=== PATIENT | male | born 1935 | race Caucasian/White ===

== ENCOUNTER 2016-12-22 04:36 | Observation (INO) | payer OTHER ==
[~2016-12-22] VITALS: Ht 167.6 cm; Wt 69.4 kg
[~2016-12-22 04:36] MED LIST: LEVOTHYROXINE75 MCG PO; LISINOPRIL20 MG PO; LISINOPRIL40 MG PO; LO-DOSE ASPIRIN81 M1 PO; LOPRESSOR25 MG PO; NORVASC10 MG PO; NORVASC5 MG PO; PANTOPRAZOLE SO40 MG PO; PRAVASTATIN SOD80 MG PO
[2016-12-22 05:34] LABS: CHLORIDE 108 mEq/L (99-109); HEMATOCRIT 47.5 % (38.0-50.0); MCH 32.4 PG (29.0-34.0); MCHC 35.8 G/DL (30.0-36.0); MCV 90.5 FL (86-99); MEAN PLAT.VOLUME 9.4 uM^3 (9.0-12.4); PLATELET COUNT 228 K/uL (156-360); RBC DIS.WIDTH-CV 13.2 % (11.8-14.6); RBC DIS.WIDTH-SD 43.2 % (39-53); RED BLOOD COUNT 5.25 M/uL (4.00-5.50); SODIUM 139 mEq/L (136-147); WHITE BLOOD COUNT 7.6 K/uL (4.1-10.2)
[2016-12-22 05:36] LABS: GLUCOSE 109 mg/dL (70-99)
[2016-12-22 05:37] LABS: ANION GAP 10 MEQ/L (2-14)
[2016-12-22 05:39] LABS: GFR ESTIMATE (CALCULATED) > 59 mL/min/
[2016-12-22 05:40] LABS: UREA NITROGEN (BUN) 13 mg/dL (9-23)
[2016-12-22 05:42] LABS: TROP-I INTERPRETATION NEGATIVE; TROPONIN-I < 0.01 ng/mL (0.0-0.30)
[2016-12-22] MEDS ORDERED: LEVO-T88 MCG PO (08:33)
[2016-12-22] MEDS ORDERED: NAMZARIC TITRA1 EACH PO (08:34)
[2016-12-22 09:26] LABS: HDL CHOLESTEROL 44 MG/DL (Desirable>=40); LDL CHOLESTEROL 109 mg/dL (Desirable<100); NON-HDL CHOLESTEROL 132 mg/dL (Desirable<160); SAMPLE HEMOLYSIS CHECK 0; SAMPLE ICTERIC CHECK 0; SAMPLE LIPEMIA CHECK 0; TOTAL CHOLESTEROL 176 mg/dL (Desirable<200); TRIGLYCERIDES 113 MG/DL (Normal: <150)
[2016-12-22 10:07] LABS: Estimated Average Glucose 103 mg/dL (70-123); HEMOGLOBIN A1c (GLYCOHEMOGLOB) 5.2 % HGB (Below 5.7)
[2016-12-22 12:18] LABS: TROP-I INTERPRETATION NEGATIVE; TROPONIN-I < 0.01 ng/mL (0.0-0.30)
[2016-12-22 14:44] VITALS: BP 114/69
[2016-12-22 17:07] VITALS: BP 105/61
[2016-12-23 01:39] VITALS: BP 96/58
[2016-12-23 05:44] VITALS: BP 100/59
[2016-12-23 09:10] VITALS: BP 116/56
[2016-12-23 10:39] LABS: TROP-I INTERPRETATION NEGATIVE; TROPONIN-I 0.01 ng/mL (0.0-0.30)
[2016-12-23 11:47] VITALS: BP 146/70
[2016-12-23 13:21] LABS: ADD MIUA? NO; BILIRUBIN NEGATIVE; BLOOD NEGATIVE; COLOR YELLOW ((YELLOW)); GLUCOSE (STRIP) NEGATIVE; KETONES NEGATIVE; LEUKOCYTES NEGATIVE; NITRITE NEGATIVE; PROTEIN (STRIP) NEGATIVE; UCUL ADDED? NO; UROBILINOGEN 0.2 MG/DL (0.2-1.0)
[2016-12-23] MEDS ORDERED: ELIQUIS5 MG PO (13:36)
[2016-12-23] MEDS ORDERED: LOPRESSOR25 MG PO (13:36)
[2016-12-23] MEDS ORDERED: LISINOPRIL20 MG PO (13:41)
[2016-12-23 13:43] LABS: SPECIFIC GRAVITY 1.052 (1.000-1.030)
[2016-12-23] MEDS ORDERED: ELIQUIS2.5 MG PO (13:57)
== END 2016-12-23 15:32 | disposition home or self-care (01) ==
LOC: EME 04:36 → EDOF 07:55 → 5WEST 07:55 → EDOF 07:55 → 5WEST 14:30
PROVIDERS: Hospitalist; Internal Medicine; Nurse Practitioner Adult Health
DX: R07.89 Other chest pain (principal); I48.91 Unspecified atrial fibrillation; I10 Essential (primary) hypertension; R94.31 Abnormal electrocardiogram [ECG] [EKG]; I45.10 Unspecified right bundle-branch block; F03.90 Unspecified dementia, unspecified severity, without behavioral disturbance, psychotic disturbance, mood disturbance, and anxiety; E78.5 Hyperlipidemia, unspecified; Z96.651 Presence of right artificial knee joint; Z82.3 Family history of stroke; Z80.8 Family history of malignant neoplasm of other organs or systems
CPT/HCPCS: 71020; 71275; 74177; 80048; 80061; 81003; 83036; 83605; 83735; 84443; 84484; 85027; 93005; 93306; 99281; 99285; G0378; J1170; J1650; J7030